=== PATIENT | male | born 1950 | race Caucasian/White ===

== ENCOUNTER 2018-06-15 06:46 | Outpatient (CLI) | payer MEDICARE, BC ==
[2018-06-15 13:40] LABS: #Basophils 0.1 thou/uL (0.0-0.2); #Eosinphils 0.3 thou/uL (0.0-0.7); #Lymphocytes 1.8 thou/uL (1.20-3.40); #Monocytes 0.5 thou/uL (0.11-0.59); #Neutrophils 3.5 thou/uL (1.40-6.50); %Basophils 1.2 % (0.0-1.0); %Eosinophils 5.6 % (0.0-10.0); %Lymphocytes 29.4 % (21.0-51.0); %Monocytes 7.9 % (0.0-10.0); %Neutrophils 55.9 % (42.0-75.0); Mean Corpuscular Hemoglobin 32.3 pg (27.0-31.0); Mean Corpuscular Volume 94.8 fL (78.0-98.0); Mean Platelet Volume 9.2 fL (7.4-10.4); Platelet Count 176 thou/uL (130-400); RBC Distribution Width 12.2 % (11.5-14.5); Red Blood Cell (RBC) Count 4.64 mill/uL (4.70-6.10); White Blood Cell (WBC) Count 6.2 thou/uL (4.8-10.8)
[2018-06-15 14:02] LABS: Anion Gap 14 mmol/L (10-20); BUN (Urea Nitrogen) 17 mg/dL (8.4-25.7); Calc. Creatinine Clearance 0 mL/min (70-130); Calcium 9.8 mg/dL (7.8-10.44); Carbon Dioxide 25 mmol/L (23-31); Chloride 104 mmol/L (98-107); Estimated GFR-MDRD 48; Glucose 96 mg/dL (80-115); Potassium 4.8 mmol/L (3.5-5.1); Sodium 138 mmol/L (136-145)
== END 2018-06-15 06:47 | disposition home or self-care (01) ==
LOC: LABBT 06:46
PROVIDERS: ATTEND Specialist
DX: Z01.818 Encounter for other preprocedural examination (principal)
CPT/HCPCS: 80048; 85025; 93005; 93010

== ENCOUNTER 2018-06-17 10:17 | Day surgery (SDC) | payer MEDICARE, BC ==
[2018-06-15 12:34] VITALS: BMI 31.6
[2018-06-17] MEDS ORDERED: CEFAZOLIN 2 GM/50 ML BAG ONE (12:33)
[2018-06-17] MEDS ORDERED: Ketorolac Tromethamine 30 MG/ML VIAL ONE (12:33)
[2018-06-17] MEDS ORDERED: Bupivacaine/Epinephrine 0.25% 30 ML VIAL ONE (12:39)
[2018-06-17] MEDS ORDERED: Fentanyl 250 MCG/5 ML VIAL ONE (12:39)
[2018-06-17] MEDS ORDERED: Lidocaine 1% PF 5 ML VIAL ONE (13:20)
[2018-06-17] MEDS ORDERED: Rocuronium Bromide 10 MG/ML (10ML VIAL) ONE (13:20)
[2018-06-17] MEDS ORDERED: Glycopyrrolate 0.2 MG/ML 5 ML SYRINGE ONE (13:20)
[2018-06-17] MEDS ORDERED: Ondansetron PF 4 MG/2 ML Vial ONE (13:20)
[2018-06-17] MEDS ORDERED: PROPOFOL 200 MG/20 ML VIAL ONE (13:20)
--- NOTE | 2018-06-19 17:04 | OP ---
DATE OF PROCEDURE: 06/17/2018 PREOPERATIVE DIAGNOSIS: Umbilical hernia. POSTOPERATIVE DIAGNOSIS: Umbilical hernia. OPERATION PERFORMED: Umbilical hernia repair using 6.4 cm Ventralex mesh patch. ANESTHESIA: General endotracheal. INDICATIONS: The patient is a 67-year-old white male. He presents with an easily visible umbilical hernia. He was taken to the operative room at this time for repair. DESCRIPTION OF OPERATION: Informed consent was obtained. The patient was taken to the operating room, where general anesthesia obtained with the patient in supine position. Abdomen was prepped with ChloraPrep and draped in sterile fashion. Local anesthetic was infiltrated using 0.25% Marcaine with epinephrine. A curvilinear infraumbilical incision was created through which dissection was carried down to the abdominal wall. The fascia was dissected around the hernia defect. The umbilicus was dissected off the underlying hernia defect. The hernia sac was dissected circumferentially and excised. The defect was noted to be about 3 cm in width. Preperitoneal dissection was carried out bluntly. The anterior fascia was cleared using electrocautery. The 6.4 cm mesh patch was obtained and placed in the preperitoneal space that had been cleared. It was pulled snugly against the posterior aspect of the fascia and the mesh tails were secured to the fascia superiorly and inferiorly using single interrupted sutures of 0 Prolene. The lateral aspects of the defect were closed using 2 additional sutures of 0 Prolene, incorporating bites of the anterior leaflet of the mesh patch. The umbilicus was then sutured down to the fascia using 2 interrupted sutures of 3-0 Vicryl. The wound was then closed in layers using 3-0 and 4-0 Monocryl. Additional local anesthetic was infiltrated into the wound during closure. Dermabond was placed over the skin incision. A compression dressing was then created using cotton balls and Tegaderm in the usual fashion. There were no complications. The patient tolerated the procedure well and was taken to recovery room in stable condition. Job ID: [id number]
== END 2018-06-17 15:30 | disposition home or self-care (01) ==
LOC: SDC 10:17
PROVIDERS: ATTEND Specialist
PROC: 0WUF4JZ Supplement Abdominal Wall with Synthetic Substitute, Percutaneous Endoscopic Approach (ICD-10-PCS; principal; 2018-06-17)
DX: K42.9 Umbilical hernia without obstruction or gangrene (principal); I10 Essential (primary) hypertension; E07.9 Disorder of thyroid, unspecified; Z88.0 Allergy status to penicillin; Z91.010 Allergy to peanuts; Z79.899 Other long term (current) drug therapy; Z79.82 Long term (current) use of aspirin
CPT/HCPCS: J0131; J1885; J2001; J2405; J2704; J3010